=== PATIENT | female | born 1995 | race Caucasian/White ===

== ENCOUNTER 2016-10-02 11:02 | Inpatient (IN) | payer MEDICAID, OTHER ==
[~2016-10-02] VITALS: Ht 154.9 cm; Wt 71.9 kg
[2016-10-02 11:12] VITALS: Ht 154.9 cm; Wt 71.9 kg
[2016-10-02 11:13] VITALS: BP 121/78; PULSE 81
[2016-10-02] MEDS ORDERED: PRENAT PO (11:14)
--- NOTE | 2016-10-02 11:55 | RADRPT ---
PROCEDURE: US OB biophysical profile. CLINICAL INDICATION: decreased movements, spontaneous rupture of membranes TECHNIQUE: Multiple sonographic images of the pelvis were obtained. The images were reviewed on a PACS workstation. COMPARISON: No prior studies are available for comparison. FINDINGS: There is a single viable intrauterine gestation. Cardiac activity is present with 148 beats per min [place]. There is a vertex presentation. The placenta is anterior. There is no evidence of placental abruption. There is a borderline decreased amount of amniotic fluid with an MELINDA = 7.9 cm. Biophysical profile: movement 2/2 tone 2/2. breathing 2/2 MELINDA 2/2 Total 01/09 RPTAT: AA . IMPRESSION: Normal biophysical profile. Borderline decreased MELINDA. . .Adria Orantes MD, MD Date Time Electronically viewed and signed by .Adria Orantes MD, MD on 10/02/2016 11:55 .S/
--- NOTE | 2016-10-02 11:56 | RADRPT ---
PROCEDURE: US OB. CLINICAL INDICATION: Size and dates , spontaneous rupture of membranes TECHNIQUE: Multiple sonographic images of the pelvis and gravid uterus were obtained. The images were reviewed on a PACS workstation. COMPARISON: No prior studies are available for comparison. FINDINGS: There is a single viable intrauterine gestation. Cardiac activity is present with 148 beats per min [place]. There is a vertex presentation. The placenta is anterior. There is no evidence of placental abruption. There is a borderline decreased amount of amniotic fluid with an MELINDA = 7.9 cm. Measurements were made in order to determine age. The results are as follows: BPD =8.8 cm HC =31.6 cm AC =33.8 cm FL =6.9 cm Estimated gestational age of approximately 36 weeks and 0 days based on ultrasound measurements. Clinical age: 38 weeks and 5 days. The estimated date of delivery is 10/30/16, based on ultrasound measurements. The EFW = 3001 g, 18.9%, based on LMP age. RPTAT: AA IMPRESSION: Single viable intrauterine gestation of approximately 36 weeks and 0 days based on ultrasound measu rements. Smaller than clinical age by almost 3 weeks. .Adria Orantes MD, MD Date Time Electronically viewed and signed by .Adria Orantes MD, MD on 10/02/2016 11:56 .S/
[2016-10-02] MEDS ORDERED: OXYTOCIN 30 UNITS/LR 500 ML IV SCH (12:30)
[2016-10-02] MEDS ORDERED: LACTATED RINGER'S 1,000 ML IV PRN (12:30)
[2016-10-02] MEDS ORDERED: CARBOPROST 250 MCG INJ IM PRN (12:30)
[2016-10-02] MEDS ORDERED: AMPICILLIN 2 GM/NS (PMX) 100 ML IV ONE (12:30)
[2016-10-02] MEDS ORDERED: METHYLERGONOVINE 0.2 MG INJ IM PRN (12:30)
[2016-10-02] MEDS ORDERED: MISOPROSTOL 200 MCG TAB PR PRN (12:30)
[2016-10-02] MEDS ORDERED: LIDOCAINE 1% (MPF) 30 ML INJ INJ PRN (12:30)
[2016-10-02] MEDS ORDERED: BUTORPHANOL 2 MG INJ IV PRN ×2 (12:30)
[2016-10-02] MEDS: LACTATED RINGER'S 1,000 ML IV SCH ×2 (12:43→18:46)
[2016-10-02 13:01] LABS: ADD SCAN DIFF NO; BASOPHIL # 0.1 10^3/ul (0.0-0.1); BASOPHILS % 0.7 % (0.0-2.0); EOSINOPHILS # 0.2 10^3/ul (0.0-0.5); EOSINOPHILS % 1.6 % (0.0-7.0); HEMATOCRIT 36.3 % (37.0-47.0); HEMOGLOBIN 11.9 g/dl (12.0-16.0); LYMPHOCYTES # 1.8 10^3/ul (0.8-2.9); LYMPHOCYTES % 18.9 % (15.0-51.0); MEAN CORPUSCULAR HEMOGLOBIN 29.6 pg (29.0-33.0); MEAN CORPUSCULAR HGB CONC 32.8 g/dl (32.0-37.0); MEAN CORPUSCULAR VOLUME 90.3 fl (82.0-101.0); MEAN PLATELET VOLUME 10.1 fl (7.4-10.4); MONOCYTE # 0.7 10^3/ul (0.3-0.9); MONOCYTES % 7.7 % (0.0-11.0); NEUTROPHIL # 6.7 10^3/ul (1.6-7.5); NEUTROPHILS % 69.7 % (39.0-77.0); PLATELET COUNT 278 10^3/UL (140-415); RED BLOOD COUNT 4.02 10^6/ul (4.20-5.40); RED CELL DISTRIBUTION WIDTH 14.6 % (11.5-14.5); WHITE BLOOD COUNT 9.7 10^3/ul (4.8-10.8)
[2016-10-02 13:14] LABS: INR 0.93; PARTIAL THROMBOPLASTIN TIME 26.4 Sec (25.0-35.0); PROTIME 12.5 Sec (12.2-14.2)
[2016-10-02] MEDS ORDERED: ACETAMINOPHEN 325 MG TAB PO PRN (14:30)
--- NOTE | 2016-10-02 17:13 | HP ---
Date/Time of Note Date/Time of Note DATE: 10/02/16 TIME: 17:05 OB - History Hx of Present Free Text/Dictation 20 years old female 1 para 0 admitted to [facility] at 38 weeks and 5 days with premature rupture of membrane as of 1400 October 02, 2016, clear fluid no meconium ,admitting pelvic examination cervix 1-2 cm 70% effaced vertex at -3 station contraction every 3-6 minute, was placed on ampicillin 2 g IV every 6 hours and labor augmentation with Pitocin IV drip infusion Chief Complaint: Premature rupture of membrane labor contraction Estimated Due Date: October 20, 2016 : 1 Para: 0 Spontaneous : 0 Therapeutic : 0 Care: Good Care Ultrasounds: Normal mid trimester US Obstetrical Complications: None Medical Complications: None Past Family/Social History * Past Medical, Surgical, Family and Obstetric Histories reviewed from chart. Rubella: immune RPR/VDRL: Negative GBS Status: Negative HBsAG: Negative OB Admission Exam Vital Signs Vital Signs Vital Signs Date Time Temp Pulse Resp B/P Pulse Ox O2 Delivery O2 Flow Rate FiO2 10/02/16 11:13 97.7 81 121/78 Physical Exam HEENT: WNL Heart: Rhythm Normal Lungs: Clear, Equal Abdomen: WNL Extremities: Normal Reflexes: Normal Cervical Dilatation: 2cm Effacement: 75% Station: -2 Membranes: Ruptured Amniotic Fluid: Clear Heart Rate: 130's Accelerations: Accelerations Present Decelerations: No Decelerations Varibility: Moderate Contractions on Admission: < 5 Minutes Apart Intensity: Moderate Last 72 hours Lab Results CBC & BMP 10/02/16 12:45 CRISPIN MEAD MD October 02, 2016 17:13
[2016-10-02] MEDS: AMPICILLIN 1 GM/NS (PMX) 50 ML IV SCH ×2 (17:27→20:47)
[2016-10-02] MEDS ORDERED: LACTATED RINGER'S 1,000 ML IV ONE (18:32)
[2016-10-02] MEDS ORDERED: ONDANSETRON 4 MG INJ IV PRN (19:00)
[2016-10-02] MEDS ORDERED: DIPHENHYDRAMINE 50 MG INJ IV PRN (19:00)
[2016-10-02] MEDS ORDERED: CITRIC ACID/NA CITRATE 30 ML CUP PO ONE (19:00)
[2016-10-02] MEDS ORDERED: morphine 2 MG INJ IV PRN ×2 (19:00)
[2016-10-02] MEDS ORDERED: KETOROLAC 30 MG INJ IV PRN (19:00)
[2016-10-02] MEDS ORDERED: ONDANSETRON 4 MG INJ IV ONE (19:00)
[2016-10-02] MEDS ORDERED: NALOXONE (0.4 MG/ML) INJ IV PRN (19:00)
[2016-10-02] MEDS ORDERED: PROCHLORPERAZINE 10 MG INJ IV PRN (19:00)
[2016-10-02] MEDS: ACETAMINOPHEN 500 MG TAB PO PRN (23:15)
[2016-10-03] MEDS: LACTATED RINGER'S 1,000 ML IV SCH ×3 (00:07→12:47)
[2016-10-03] MEDS: AMPICILLIN 1 GM/NS (PMX) 50 ML IV SCH ×4 (00:19→12:05)
[2016-10-03] MEDS: FENTAnyl 2MCG/ML-ROPIV 0.2% 100 ML BAG EPI SCH ×2 (01:59→09:11)
[2016-10-03] MEDS: ACETAMINOPHEN 500 MG TAB PO PRN (04:57)
[2016-10-03] MEDS ORDERED: DEXTROSE 5%-LR 1,000 ML IV SCH (10:00)
[2016-10-03] MEDS: OXYTOCIN 30 UNITS/LR 500 ML IV PRN ×2 (15:56→16:03)
--- NOTE | 2016-10-03 16:10 | LDN ---
Date/Time of Note Date/Time of Note DATE: 10/03/16 TIME: 16:06 Delivery Summary Normal spontaneous vaginal delivery of a baby boy from OA position shoulders delivered without any difficulty rest of the baby's body followed cord was clamped after stopped pulsation placenta spontaneous expulsion inspected complete blood loss 250 cc patient sustained small first-degree perineal laceration repaired with 2-0 chromic catgut Placenta Delivered: Spontaneously Meconium: none Episiotomy: No Sponge & Needle done & correct: Yes All needle counts correct: Yes Any foreign bodies felt in the: No Problems: Infant Delivery Information Sex Sex: male Apgars 1 Minute: 8 5 Minute: 9 Suctioning Nose & mouth suctioned at amy: Yes Delee suction performed: Yes Umbilical Cord Umbilical cord with: 3 Vessels Cord presentations: no nuchal cord Cord Blood was obtained: Yes CRISPIN MEAD MD October 03, 2016 16:10
[2016-10-03 17:31] VITALS: BP 126/86; PULSE 100; RESP 16
[2016-10-03] MEDS: OXYTOCIN 30 UNITS/LR 500 ML IV SCH ×2 (17:36→21:39)
[2016-10-03] MEDS ORDERED: OXYCODONE/ASPIRIN (4.88/325) TAB PO PRN ×2 (18:00)
[2016-10-03] MEDS ORDERED: ONDANSETRON 4 MG INJ IV PRN (18:00)
[2016-10-03] MEDS ORDERED: ACETAMINOPHEN/CODEINE #3 TAB PO PRN ×2 (18:00)
[2016-10-03] MEDS ORDERED: DIBUCAINE 1% 30 GM OINT PR PRN (18:00)
[2016-10-03] MEDS ORDERED: ACETAMINOPHEN 325 MG TAB PO PRN (18:00)
[2016-10-03] MEDS ORDERED: LANOLIN 7 GM TUBE TOP PRN (18:00)
[2016-10-03] MEDS: BENZOCAINE 20% 56 ML SPRAY TOP PRN (18:25)
[2016-10-03] MEDS: WITCH HAZEL/GLYCERIN PAD PR PRN (18:26)
[2016-10-03] MEDS: IBUPROFEN 600 MG TAB PO SCH (18:27)
[2016-10-03 20:00] VITALS: BP 126/74; PULSE 86; RESP 16
[2016-10-03] MEDS: SENNA/DOCUSATE NA (8.6MG/50MG) TAB PO SCH (21:36)
[2016-10-04] VITALS: BP 120/66; PULSE 80; RESP 18
[2016-10-04] MEDS: IBUPROFEN 600 MG TAB PO SCH ×5 (00:37→23:44)
[2016-10-04 04:00] VITALS: BP 112/54; PULSE 87; RESP 20
[2016-10-04 07:40] VITALS: BP 101/57; PULSE 80; RESP 16
[2016-10-04] MEDS: SENNA/DOCUSATE NA (8.6MG/50MG) TAB PO SCH ×2 (08:21→21:11)
[2016-10-04 08:32] LABS: ADD SCAN DIFF NO
[2016-10-04 08:44] LABS: BASOPHIL # 0.1 10^3/ul (0.0-0.1); BASOPHILS % 0.5 % (0.0-2.0); EOSINOPHILS # 0.2 10^3/ul (0.0-0.5); EOSINOPHILS % 1.4 % (0.0-7.0); HEMOGLOBIN 8.4 g/dl (12.0-16.0); LYMPHOCYTES # 3.3 10^3/ul (0.8-2.9); LYMPHOCYTES % 22.2 % (15.0-51.0); MEAN CORPUSCULAR HEMOGLOBIN 29.5 pg (29.0-33.0); MEAN CORPUSCULAR HGB CONC 32.3 g/dl (32.0-37.0); MEAN CORPUSCULAR VOLUME 91.2 fl (82.0-101.0); MEAN PLATELET VOLUME 10.4 fl (7.4-10.4); MONOCYTE # 1.3 10^3/ul (0.3-0.9); MONOCYTES % 8.8 % (0.0-11.0); NEUTROPHIL # 9.8 10^3/ul (1.6-7.5); NEUTROPHILS % 66.4 % (39.0-77.0); PLATELET COUNT 216 10^3/UL (140-415); RED BLOOD COUNT 2.85 10^6/ul (4.20-5.40); RED CELL DISTRIBUTION WIDTH 15.1 % (11.5-14.5); WHITE BLOOD COUNT 14.7 10^3/ul (4.8-10.8)
--- NOTE | 2016-10-04 10:03 | PN ---
Date/Time of Note Date/Time of Note DATE: 10/04/16 TIME: 10:02 OB Subjective Subjective Subjective day 1 Day 1 post normal vaginal delivery afebrile abdomen soft uterus firm lochia normal extremities normal ambulation recommended Laboratory Tests Test 10/04/16 08:01 White Blood Count 14.710^3/ul Red Blood Count 2.8510^6/ul Hemoglobin 8.4g/dl Hematocrit 26.0% Mean Corpuscular Volume 91.2fl Mean Corpuscular Hemoglobin 29.5pg Mean Corpuscular Hemoglobin Concent 32.3g/dl Red Cell Distribution Width 15.1% Platelet Count 80544^3/UL Mean Platelet Volume 10.4fl Neutrophils % 66.4% Lymphocytes % 22.2% Monocytes % 8.8% Eosinophils % 1.4% Basophils % 0.5% Nucleated Red Blood Cells % 0.0/100WBC Neutrophils # 9.810^3/ul Lymphocytes # 3.310^3/ul Monocytes # 1.310^3/ul Eosinophils # 0.210^3/ul Basophils # 0.110^3/ul Nucleated Red Blood Cells # 0.010^3/ul Current Medications Medications (Trade) Dose Ordered Sig/Monique Route PRN Reason Start Time Stop Time Status Last Admin Dose Admin Lactated Ringer's 1,000 ml @ 125 mls/hr Q8H IV 10/02/16 12:28 10/03/16 17:38 DC 10/03/16 12:47 Ampicillin 100 ml @ 100 mls/hr ONCE ONCE IV 10/02/16 12:30 10/02/16 13:29 DC 10/02/16 13:07 Ampicillin 50 ml @ 100 mls/hr Q4H IV 10/02/16 16:30 10/03/16 17:38 DC 10/03/16 12:05 Oxytocin/Lactated Ringer's 500 ml @ 0 mls/hr TITRATE IV 10/02/16 12:30 10/03/16 17:38 DC 10/02/16 13:09 Butorphanol Tartrate (Stadol) 1 mg Q2H PRN IV PAIN 10/02/16 12:30 10/03/16 17:38 DC Butorphanol Tartrate (Stadol) 2 mg Q2H PRN IV PAIN 10/02/16 12:30 10/03/16 17:38 DC Lidocaine 30 ml 30 ml ONCE PRN INJ EPISIOTOMY/TEARING 10/02/16 12:30 10/03/16 17:38 DC Lactated Ringer's 1,000 ml @ 2,000 mls/hr Q30M PRN IV PRE-EPIDURAL BOLUS 10/02/16 12:30 10/03/16 17:38 DC 10/02/16 17:27 Oxytocin/Lactated Ringer's 500 ml @ 0 mls/hr ONCE PRN IV For Hemorrhage Management 10/02/16 12:30 10/03/16 17:38 DC 10/03/16 16:03 Methylergonovine Maleate (Methergine) 0.2 mg ONCE PRN IM VAGINAL BLEEDING 10/02/16 12:30 10/03/16 17:39 DC 10/03/16 15:04 Carboprost Tromethamine (Hemabate) 250 mcg ONCE PRN IM VAGINAL BLEEDING 10/02/16 12:30 10/03/16 17:39 DC Misoprostol (Cytotec) 1,000 mcg ONCE PRN SD VAGINAL BLEEDING 10/02/16 12:30 10/03/16 17:39 DC Acetaminophen 650 mg 650 mg Q6H PRN PO PAIN AND OR ELEVATED TEMP 10/02/16 14:30 10/03/16 17:39 DC 10/02/16 14:17 Lactated Ringer's (Lr) 1,000 ml @ 1,000 mls/hr Q1H ONCE IV 10/02/16 18:32 10/02/16 19:31 DC 10/02/16 22:48 Ondansetron HCl (Zofran Inj) 4 mg pre-procedure ONCE IV 10/02/16 19:00 10/02/16 19:01 DC Citric Acid/ Sodium Citrate (Bicitra) 30 ml pre-procedure ONCE PO 10/02/16 19:00 10/02/16 19:01 DC Naloxone HCl (Narcan) 0.1 mg Q2M PRN IV FOR RESP RATE 8 OR LESS 10/02/16 19:00 10/03/16 17:39 DC Ketorolac Tromethamine (Toradol) 30 mg Q6H PRN IV PAIN 10/02/16 19:00 10/03/16 17:39 DC Morphine Sulfate (morphine) 2 mg Q3H PRN IV PAIN LEVEL 1-5 10/02/16 19:00 10/03/16 17:39 DC Morphine Sulfate (morphine) 4 mg Q3H PRN IV PAIN LEVEL 6-10 10/02/16 19:00 10/03/16 17:39 DC Diphenhydramine HCl (Benadryl) 25 mg Q6H PRN IV ITCHING 10/02/16 19:00 10/03/16 17:39 DC Ondansetron HCl (Zofran Inj) 4 mg Q6H PRN IV NAUSEA AND/OR VOMITING 10/02/16 19:00 10/03/16 17:39 DC Prochlorperazine (Compazine Inj) 10 mg ONCE PRN IV NAUSEA AND/OR VOMITING 10/02/16 19:00 10/03/16 17:39 DC Fentanyl/ Ropivacaine 100 ml EPIDURAL INFUSION EPI 10/02/16 19:00 10/03/16 17:39 DC 10/03/16 09:11 Acetaminophen 1000 mg 1,000 mg Q4H PRN PO PAIN AND OR ELEVATED TEMP 10/02/16 23:30 10/03/16 17:39 DC 10/03/16 04:57 Dextrose/Lactated Ringer's 1,000 ml @ 125 mls/hr Q8H IV 10/03/16 10:00 10/03/16 17:39 DC 10/03/16 10:00 Oxytocin/Lactated Ringer's 500 ml @ 125 mls/hr Q4H IV 10/03/16 17:36 10/04/16 01:35 DC 10/03/16 21:39 Ibuprofen (Motrin) 600 mg Q6 PO 10/03/16 18:00 10/04/16 06:39 Acetaminophen (Tylenol Tab) 650 mg Q4H PRN PO PAIN LEVEL 1-5 10/03/16 18:00 Acetaminophen/ Codeine Phosphate (Tylenol No.3) 1 tab Q4H PRN PO PAIN LEVEL 1-5 10/03/16 18:00 Acetaminophen/ Codeine Phosphate (Tylenol No.3) 2 tab Q4H PRN PO PAIN LEVEL 6-10 10/03/16 18:00 Oxycodone/Aspirin (Percodan) 1 tab Q3H PRN PO PAIN LEVEL 1-5 10/03/16 18:00 Oxycodone/Aspirin (Percodan) 2 tab Q3H PRN PO PAIN LEVEL 6-10 10/03/16 18:00 Ondansetron HCl (Zofran Inj) 4 mg Q6H PRN IV NAUSEA AND/OR VOMITING 10/03/16 18:00 Senna/Docusate Sodium (Senokot-S) 1 tab BID PO 10/03/16 21:00 10/04/16 08:21 Witch Lorrie/ Glycerin (Tucks Pads) 1 pad BEDSIDE MEDICATION PRN SD HEMORRHOID/EPISIOTMY PAIN 10/03/16 18:00 10/03/16 18:26 Benzocaine (Dermoplast [place]) 1 spray BEDSIDE MEDICATION PRN TOP HEMORRHOID/EPISIOTMY PAIN 10/03/16 18:00 10/03/16 18:25 Dibucaine (Nupercainal) 1 applic BEDSIDE MEDICATION PRN SD HEMORRHOID/EPISIOTMY PAIN 10/03/16 18:00 10/03/16 18:26 Lanolin (Fuf-S-Auhjlb) 1 applic BEDSIDE MEDICATION PRN TOP BEDSIDE FOR FAROOQ TO NIPPLES 10/03/16 18:00 10/03/16 18:26 Measles/Mumps/ Rubella Vaccine Live (Mmr Ii Vaccine) 0.5 ml ONCE ONCE SC* 10/05/16 09:00 10/05/16 09:01 CRISPIN MEAD MD October 04, 2016 10:03
[2016-10-04 16:00] VITALS: BP 111/78; PULSE 88; RESP 16
[2016-10-04 20:00] VITALS: BP 111/74; PULSE 71; RESP 17
[2016-10-05 04:00] VITALS: BP 130/76; PULSE 77; RESP 20
[2016-10-05] MEDS: IBUPROFEN 600 MG TAB PO SCH ×2 (06:04→12:01)
[2016-10-05 08:00] VITALS: BP 118/81; PULSE 76; RESP 16
[2016-10-05] MEDS ORDERED: MEASLES,MUMPS,RUBELLA VACCINE INJ SC* ONE (09:00)
[2016-10-05] MEDS: SENNA/DOCUSATE NA (8.6MG/50MG) TAB PO SCH (10:01)
--- NOTE | 2016-10-05 13:29 | DS ---
Date/Time of Note Date/Time of Note DATE: 10/05/16 TIME: 13:23 Obstetrical Discharge Record Final Diagnosis Final Diagnosis: Term delivered Vaginal Delivery Obstetrical Delivery: Spontaneous, Laceration, Repaired Complications Gestational Age at Rupture Current Medications Medications (Trade) Dose Ordered Sig/Monique Route PRN Reason Start Time Stop Time Status Last Admin Dose Admin Lactated Ringer's 1,000 ml @ 125 mls/hr Q8H IV 10/02/16 12:28 10/03/16 17:38 DC 10/03/16 12:47 Ampicillin 100 ml @ 100 mls/hr ONCE ONCE IV 10/02/16 12:30 10/02/16 13:29 DC 10/02/16 13:07 Ampicillin 50 ml @ 100 mls/hr Q4H IV 10/02/16 16:30 10/03/16 17:38 DC 10/03/16 12:05 Oxytocin/Lactated Ringer's 500 ml @ 0 mls/hr TITRATE IV 10/02/16 12:30 10/03/16 17:38 DC 10/02/16 13:09 Butorphanol Tartrate (Stadol) 1 mg Q2H PRN IV PAIN 10/02/16 12:30 10/03/16 17:38 DC Butorphanol Tartrate (Stadol) 2 mg Q2H PRN IV PAIN 10/02/16 12:30 10/03/16 17:38 DC Lidocaine 30 ml 30 ml ONCE PRN INJ EPISIOTOMY/TEARING 10/02/16 12:30 10/03/16 17:38 DC Lactated Ringer's 1,000 ml @ 2,000 mls/hr Q30M PRN IV PRE-EPIDURAL BOLUS 10/02/16 12:30 10/03/16 17:38 DC 10/02/16 17:27 Oxytocin/Lactated Ringer's 500 ml @ 0 mls/hr ONCE PRN IV For Hemorrhage Management 10/02/16 12:30 10/03/16 17:38 DC 10/03/16 16:03 Methylergonovine Maleate (Methergine) 0.2 mg ONCE PRN IM VAGINAL BLEEDING 10/02/16 12:30 10/03/16 17:39 DC 10/03/16 15:04 Carboprost Tromethamine (Hemabate) 250 mcg ONCE PRN IM VAGINAL BLEEDING 10/02/16 12:30 10/03/16 17:39 DC Misoprostol (Cytotec) 1,000 mcg ONCE PRN RI VAGINAL BLEEDING 10/02/16 12:30 10/03/16 17:39 DC Acetaminophen 650 mg 650 mg Q6H PRN PO PAIN AND OR ELEVATED TEMP 10/02/16 14:30 10/03/16 17:39 DC 10/02/16 14:17 Lactated Ringer's (Lr) 1,000 ml @ 1,000 mls/hr Q1H ONCE IV 10/02/16 18:32 10/02/16 19:31 DC 10/02/16 22:48 Ondansetron HCl (Zofran Inj) 4 mg pre-procedure ONCE IV 10/02/16 19:00 10/02/16 19:01 DC Citric Acid/ Sodium Citrate (Bicitra) 30 ml pre-procedure ONCE PO 10/02/16 19:00 10/02/16 19:01 DC Naloxone HCl (Narcan) 0.1 mg Q2M PRN IV FOR RESP RATE 8 OR LESS 10/02/16 19:00 10/03/16 17:39 DC Ketorolac Tromethamine (Toradol) 30 mg Q6H PRN IV PAIN 10/02/16 19:00 10/03/16 17:39 DC Morphine Sulfate (morphine) 2 mg Q3H PRN IV PAIN LEVEL 1-5 10/02/16 19:00 10/03/16 17:39 DC Morphine Sulfate (morphine) 4 mg Q3H PRN IV PAIN LEVEL 6-10 10/02/16 19:00 10/03/16 17:39 DC Diphenhydramine HCl (Benadryl) 25 mg Q6H PRN IV ITCHING 10/02/16 19:00 10/03/16 17:39 DC Ondansetron HCl (Zofran Inj) 4 mg Q6H PRN IV NAUSEA AND/OR VOMITING 10/02/16 19:00 10/03/16 17:39 DC Prochlorperazine (Compazine Inj) 10 mg ONCE PRN IV NAUSEA AND/OR VOMITING 10/02/16 19:00 10/03/16 17:39 DC Fentanyl/ Ropivacaine 100 ml EPIDURAL INFUSION EPI 10/02/16 19:00 10/03/16 17:39 DC 10/03/16 09:11 Acetaminophen 1000 mg 1,000 mg Q4H PRN PO PAIN AND OR ELEVATED TEMP 10/02/16 23:30 10/03/16 17:39 DC 10/03/16 04:57 Dextrose/Lactated Ringer's 1,000 ml @ 125 mls/hr Q8H IV 10/03/16 10:00 10/03/16 17:39 DC 10/03/16 10:00 Oxytocin/Lactated Ringer's 500 ml @ 125 mls/hr Q4H IV 10/03/16 17:36 10/04/16 01:35 DC 10/03/16 21:39 Ibuprofen (Motrin) 600 mg Q6 PO 10/03/16 18:00 10/05/16 12:01 Acetaminophen (Tylenol Tab) 650 mg Q4H PRN PO PAIN LEVEL 1-5 10/03/16 18:00 Acetaminophen/ Codeine Phosphate (Tylenol No.3) 1 tab Q4H PRN PO PAIN LEVEL 1-5 10/03/16 18:00 10/04/16 21:11 Acetaminophen/ Codeine Phosphate (Tylenol No.3) 2 tab Q4H PRN PO PAIN LEVEL 6-10 10/03/16 18:00 Oxycodone/Aspirin (Percodan) 1 tab Q3H PRN PO PAIN LEVEL 1-5 10/03/16 18:00 Oxycodone/Aspirin (Percodan) 2 tab Q3H PRN PO PAIN LEVEL 6-10 10/03/16 18:00 Ondansetron HCl (Zofran Inj) 4 mg Q6H PRN IV NAUSEA AND/OR VOMITING 10/03/16 18:00 Senna/Docusate Sodium (Senokot-S) 1 tab BID PO 10/03/16 21:00 10/05/16 10:01 Witch Lorrie/ Glycerin (Tucks Pads) 1 pad BEDSIDE MEDICATION PRN RI HEMORRHOID/EPISIOTMY PAIN 10/03/16 18:00 10/03/16 18:26 Benzocaine (Dermoplast [place]) 1 spray BEDSIDE MEDICATION PRN TOP HEMORRHOID/EPISIOTMY PAIN 10/03/16 18:00 10/03/16 18:25 Dibucaine (Nupercainal) 1 applic BEDSIDE MEDICATION PRN RI HEMORRHOID/EPISIOTMY PAIN 10/03/16 18:00 10/03/16 18:26 Lanolin (Glc-L-Vokxea) 1 applic BEDSIDE MEDICATION PRN TOP BEDSIDE FOR FAROOQ TO NIPPLES 10/03/16 18:00 10/03/16 18:26 Measles/Mumps/ Rubella Vaccine Live (Mmr Ii Vaccine) 0.5 ml ONCE ONCE SC* 10/05/16 09:00 10/05/16 09:01 DC 2 Patient is doing well, Ambulatory She is afebrile Abdomen is soft , Fundus is firm Moderate amount of lochia Breasts are soft, Nipples are intact No calf tenderness. Perineum is healing well. Breast feeding the new born. Patient discharged home with instruction to rest at home and return to clinic in 4 weeks The to be seen in marrow 3 days by the welding technician Condition on Discharge Physical Assessment Voiding: Yes Bowel Movement: Yes Breast: Soft, non-tender Fundus: Firm Calf Tenderness: Yes Patient Condition: Good ANA HICKMAN MD October 05, 2016 13:28
[2016-10-05] MEDS: BENZOCAINE 20% 56 ML SPRAY TOP PRN (15:44)
[2016-10-05] MEDS: WITCH HAZEL/GLYCERIN PAD PR PRN (15:44)
[2016-10-06 12:53] LABS: RUBELLA ANTIBODY - IGG 3.07 index
== END 2016-10-05 15:45 | disposition home or self-care (01) | DRG 775 ==
LOC: OBT 11:02 → L-D 11:04 → OBT 12:20 → L-D 12:22 → PP1 10-03 17:35
PROVIDERS: ADMIT Obstetrics & Gynecology; ATTEND Obstetrics & Gynecology
PROC: 10E0XZZ Delivery of Products of Conception, External Approach (ICD-10-PCS; principal; 2016-10-03)
PROC: 0HQ9XZZ Repair Perineum Skin, External Approach (ICD-10-PCS; 2016-10-03)
DX: O70.0 First degree perineal laceration during delivery (principal); Z37.0 Single live birth; Z3A.38 38 weeks gestation of pregnancy
CPT/HCPCS: 62319; 76815; 76818; 84112; 85025; 85610; 85730; 86592; 86703; 86762; 86900; 86901; 87340; G0463; J0290; J2210; J2590; J3010; J7120; J7121

== ENCOUNTER 2017-04-20 15:38 | Emergency (ER) | payer OTHER ==
[~2017-04-20] VITALS: Ht 157.5 cm; Wt 59.4 kg
[~2017-04-20 15:38] MED LIST: PRENAT PO
[2017-04-20 15:43] VITALS: Ht 157.5 cm; Wt 59.4 kg
[2017-04-20] MEDS ORDERED: ONDANSETRON (ODT) 4 MG TAB ODT STA (16:00)
[2017-04-20] MEDS ORDERED: LIDOCAINE/MYLANTA 40 ML BTL PO ONE (16:00)
--- NOTE | 2017-04-20 16:22 | ERD ---
ER Documentation Chief Complaint Chief Complaint Abdominal pain HPI 18-year-old female otherwise healthy complains of epigastric abdominal pain for 1 day with nausea, and diarrhea. Patient's pain is described as achy, localized , no radiation to the right upper quadrant right lower quadrant. She denies fevers or chills. She states that her daughter was 6 months at home has had similar symptoms as well. No history recent travel. ROS All systems reviewed and are negative except as per history of present illness. Medications Home Meds Active Scripts Ondansetron (Ondansetron Odt) 4 Mg Tab.rapdis, 4 MG PO Q6H Y for NAUSEA AND/OR VOMITING, #10 TAB Prov:AASHISH MOON PA-C 04/20/17 Ranitidine Hcl* (Zantac*) 150 Mg Tablet, 150 MG PO BID Y for EPIGASTRIC PAIN, # 30 TAB Prov:AASHISH MOON PA-C 04/20/17 Hydrocodone/Acetaminophen ([place] 5-325 Tablet) 1 Each Tablet, 1 TAB PO Q6H Y for PAIN, #7 TAB Prov:AASHISH MOON PA-C 04/20/17 Reported Medications Multivit/Min/Fol Ac/Iron/Pren* ( S*) 1 Tab Tab, 1 TAB PO DAILY, TAB 10/02/16 Allergies Allergies: Coded Allergies: No Known Allergy (Unverified , 10/02/16) PMhx/Soc History of Surgery: No Anesthesia Reaction: No Hx Neurological Disorder: No Hx Respiratory Disorders: No Hx Cardiac Disorders: No Hx Psychiatric Problems: No Hx Miscellaneous Medical Probl: No Hx Alcohol Use: No Hx Substance Use: No Hx Tobacco Use: No Physical Exam Vitals Vital Signs Date Time Temp Pulse Resp B/P Pulse Ox O2 Delivery O2 Flow Rate FiO2 04/20/17 15:43 98.1 120 20 114/71 97 Physical Exam General: Well-developed, well-nourished. The patient appears in no acute distress. HEENT: Head is normocephalic, atraumatic. No scleral icterus. Pupils are equal , round, and reactive. Oral mucous membranes are moist. No pharyngeal erythema. Neck: Supple. Nontender. Lungs: Clear to auscultation. Normal air movement. Heart: Regular rate and rhythm. S1 and S2 are normal. No murmurs, gallops, or rubs. Abdomen: Soft, mid abdomen is tender, nondistended. Bowel sounds are normoactive. Negative Scruggs sign, no McBurney tenderness. Extremities: No clubbing or cyanosis. Normal pulses. Moving extremities x 4. No weakness. Neurologic: Alert and oriented 3. No focal deficits. Skin: Normal turgor. No rash or lesions. Result Diagram: 04/20/17 1611 04/20/17 1611 Results 24 hrs Laboratory Tests Test 04/20/17 16:11 White Blood Count 10.910^3/ul Red Blood Count 4.9410^6/ul Hemoglobin 14.4g/dl Hematocrit 43.3% Mean Corpuscular Volume 87.7fl Mean Corpuscular Hemoglobin 29.1pg Mean Corpuscular Hemoglobin Concent 33.3g/dl Red Cell Distribution Width 12.1% Platelet Count 30705^3/UL Mean Platelet Volume 9.3fl Neutrophils % 79.3% Lymphocytes % 12.5% Monocytes % 5.6% Eosinophils % 1.7% Basophils % 0.4% Nucleated Red Blood Cells % 0.0/100WBC Neutrophils # 8.610^3/ul Lymphocytes # 1.410^3/ul Monocytes # 0.610^3/ul Eosinophils # 0.210^3/ul Basophils # 0.010^3/ul Nucleated Red Blood Cells # 0.010^3/ul Urine Color YELLOW Urine Clarity SLIGHTLY CLOUDY Urine pH 5.0 Urine Specific Wright 1.030 Urine Ketones TRACEmg/dL Urine Nitrite NEGATIVEmg/dL Urine Bilirubin NEGATIVEmg/dL Urine Urobilinogen NEGATIVEmg/dL Urine Leukocyte Esterase 1+Tracy/ul Urine Microscopic RBC 6/HPF Urine Microscopic WBC 8/HPF Urine Squamous Epithelial Cells MANY/HPF Urine Bacteria FEW/HPF Urine Mucus FEW/HPF Urine Hemoglobin NEGATIVEmg/dL Urine Glucose NEGATIVEmg/dL Urine Total Protein NEGATIVEmg/dl Sodium Level 147mmol/L Potassium Level 4.4mmol/L Chloride Level 106mmol/L Carbon Dioxide Level 23mmol/L Anion Gap 22 Blood Urea Nitrogen 15mg/dl Creatinine 0.64mg/dl Glucose Level 95mg/dl Calcium Level 9.5mg/dl Total Bilirubin 0.6mg/dl Direct Bilirubin 0.00mg/dl Indirect Bilirubin 0.6mg/dl Aspartate Amino Transf (AST/SGOT) 41IU/L Alanine Aminotransferase (ALT/SGPT) 78IU/L Alkaline Phosphatase 176IU/L Total Protein 8.6g/dl Albumin 5.0g/dl Globulin 3.60g/dl Albumin/Globulin Ratio 1.38 Lipase 77U/L Serum HCG, Qualitative NEGATIVE Current Medications Medications (Trade) Dose Ordered Sig/Monique Route PRN Reason Start Time Stop Time Status Last Admin Dose Admin Miscellaneous Medication (Gi Cocktail (2)) 40 ml ONCE ONCE PO 04/20/17 16:00 04/20/17 16:01 DC 04/20/17 16:09 Ondansetron HCl (Zofran Odt) 4 mg ONCE STAT ODT 04/20/17 16:00 04/20/17 16:01 DC 04/20/17 16:09 DIAGNOSTIC IMAGING REPORT Patient: EZEKIEL IBRAHIM : 1995 Age: 21 Sex: F MR #: [id number] DOS: 04/20/17 1700 Ordering MD: AASHISH MOON PA-C Location: [facility] Room/Bed: PROCEDURE: US Abdomen (right upper quadrant). CLINICAL INDICATION: Right upper quadrant abdomen pain. TECHNIQUE: Multiple real-time longitudinal and transverse images of the right upper quadrant of the abdomen were acquired utilizing a curved array transducer. Images were reviewed on a high-resolution PACS workstation. COMPARISON: None FINDINGS: The liver is normal in size and normal in echogenicity. There is no focal hepatic lesion. Color Doppler and pulsed Doppler sonography demonstrate normal antegrade flow in the portal vein. The gallbladder is normal with no stones or wall thickening. There is no pericholecystic fluid collection. The bile ducts are normal with the common bile duct measuring 3.0 mm in diameter. The visualized portions of the pancreas are unremarkable with obscuration of the tail of the pancreas. No free fluid is present. The right kidney measures 10.4 cm. There is normal echogenicity of the right kidney. There is no perinephric fluid collection. No hydronephrosis, mass, or calculus is seen. IMPRESSION: 1. Unremarkable right upper quadrant abdomen ultrasound. RPTAT: QQ .Juanito Desouza MD, MD Date Time Electronically viewed and signed by .Juanito Desouza MD, on 04/20/2017 17:33 .R/ CC: AASHISH MOON PA-C Procedures/MDM 20-year-old female comes with epigastric abdominal pain going to her mid abdomen , associated nausea and diarrhea. Suspect patient symptoms are most likely due to a viral process. Differential diagnosis includes gastritis, GERD, gastroenteritis, UTI, acute pancreatitis, acute hepatobiliary process, appendicitis. At this time the patient has localized pain to the epigastric region, there is no evidence of Scruggs sign, or right lower quadrant pain. Urine shows positive leukocyte esterase, with 8 white blood cells and will be treated for UTI. There is no evidence of leukocytosis. Patient had an elevated ALT, and alk phos, had a follow-up gallbladder ultrasound, there is no evidence of any gallstones. Recheck pain in 8-12 hours for any worsening symptoms. She was given GI cocktail, as well as Zofran states that her pain is improved. She does not have any rebound pain or guarding or signs of an acute or surgical abdominal process. Departure Diagnosis: Primary Impression: Epigastric pain Additional Impression: UTI (urinary tract infection) Condition: Good AASHISH MOON PA-C Apr 20, 2017 16:22
[2017-04-20 16:29] LABS: BASOPHILS % 0.4 % (0.0-2.0); EOSINOPHILS # 0.2 10^3/ul (0.0-0.5); EOSINOPHILS % 1.7 % (0.0-7.0); HEMATOCRIT 43.3 % (37.0-47.0); HEMOGLOBIN 14.4 g/dl (12.0-16.0); LYMPHOCYTES # 1.4 10^3/ul (0.8-2.9); LYMPHOCYTES % 12.5 % (15.0-51.0); MEAN CORPUSCULAR HEMOGLOBIN 29.1 pg (29.0-33.0); MEAN CORPUSCULAR HGB CONC 33.3 g/dl (32.0-37.0); MEAN CORPUSCULAR VOLUME 87.7 fl (82.0-101.0); MEAN PLATELET VOLUME 9.3 fl (7.4-10.4); MONOCYTE # 0.6 10^3/ul (0.3-0.9); MONOCYTES % 5.6 % (0.0-11.0); NEUTROPHIL # 8.6 10^3/ul (1.6-7.5); NEUTROPHILS % 79.3 % (39.0-77.0); PLATELET COUNT 353 10^3/UL (140-415); RED BLOOD COUNT 4.94 10^6/ul (4.20-5.40); RED CELL DISTRIBUTION WIDTH 12.1 % (11.5-14.5); WHITE BLOOD COUNT 10.9 10^3/ul (4.8-10.8)
[2017-04-20 16:35] LABS: ADD UMIC YES; UR ASCORBIC ACID 40 mg/dL (NEGATIVE); UR BACTERIA FEW /HPF (NONE SEEN); UR BILIRUBIN (Dip) NEGATIVE (NEGATIVE); UR BLOOD (Dip) NEGATIVE (NEGATIVE); UR CLARITY SLIGHTLY CLOUDY (CLEAR); UR COLOR YELLOW (YELLOW); UR GLUCOSE (Dip) NEGATIVE (NEGATIVE); UR KETONES (Dip) TRACE mg/dL (NEGATIVE); UR LEUKOCYTE ESTERASE (Dip) 1+ Leu/ul (NEGATIVE); UR MUCUS FEW /HPF (NONE SEEN); UR NITRITE (Dip) NEGATIVE (NEGATIVE); UR RBC 6 /HPF (0-5); UR SQUAMOUS EPITHELIAL CELL MANY /HPF (FEW); UR TOTAL PROTEIN (Dip) NEGATIVE (NEGATIVE); UR UROBILINOGEN (Dip) NEGATIVE (NEGATIVE)
[2017-04-20 16:51] LABS: ALBUMIN/GLOBULIN RATIO 1.38; BILIRUBIN,INDIRECT 0.6 mg/dl (0-1.1); BILIRUBIN,TOTAL 0.6 mg/dl (0.2-1.3); CALCIUM 9.5 mg/dl (8.4-10.2); CREATININE 0.64 mg/dl (0.44-1.00); POTASSIUM 4.4 mmol/L (3.5-5.1); TOTAL PROTEIN 8.6 g/dl (6.1-8.1)
--- NOTE | 2017-04-20 17:33 | RADRPT ---
PROCEDURE: US Abdomen (right upper quadrant). CLINICAL INDICATION: Right upper quadrant abdomen pain. TECHNIQUE: Multiple real-time longitudinal and transverse images of the right upper quadrant of th e abdomen were acquired utilizing a curved array transducer. Images were reviewed on a high-resoluti on PACS workstation. COMPARISON: None FINDINGS: The liver is normal in size and normal in echogenicity. There is no focal hepatic lesion. Color Doppler and pulsed Doppler sonography demonstrate normal a ntegrade flow in the portal vein. The gallbladder is normal with no stones or wall thickening. There is no pericholecystic fluid milagro ection. The bile ducts are normal with the common bile duct measuring 3.0 mm in diameter. The visualized portions of the pancreas are unremarkable with obscuration of the tail of the pancrea s. No free fluid is present. The right kidney measures 10.4 cm. There is normal echogenicity of the right kidney. There is no perinephric fluid collection. No hydronephrosis, mass, or calculus is seen. IMPRESSION: 1. Unremarkable right upper quadrant abdomen ultrasound. RPTAT: QQ .Juanito Desouza MD, MD Date Time Electronically viewed and signed by .Juanito Desouza MD, on 04/20/2017 17:33 .R/
[2017-04-20] MEDS ORDERED: ONDA4TAB14 PO (17:38)
[2017-04-20] MEDS ORDERED: HYDR-906 PO (17:38)
[2017-04-20] MEDS ORDERED: RANI150T9 PO (17:38)
[2017-04-20] MEDS ORDERED: CEPH-443 PO (17:44)
== END 2017-04-20 18:02 | disposition home or self-care (01) ==
LOC: FTE 15:38
DX: N39.0 Urinary tract infection, site not specified (principal)
CPT/HCPCS: 36415; 76705; 80053; 81001; 83690; 84703; 85025; Z7502; Z7610

== ENCOUNTER 2017-05-22 12:58 | Emergency (ER) | payer OTHER ==
[~2017-05-22] VITALS: Ht 152.4 cm; Wt 60.0 kg
[~2017-05-22 12:58] MED LIST changes: +CEPH-443 PO; +HYDR-906 PO; +ONDA4TAB14 PO; +RANI150T9 PO
[2017-05-22 13:04] VITALS: Ht 152.4 cm; Wt 60.0 kg
[2017-05-22] MEDS ORDERED: LIDOCAINE/MYLANTA 40 ML BTL PO STA (13:54)
--- NOTE | 2017-05-22 14:11 | ERD ---
ER Documentation Chief Complaint Chief Complaint epigastric pain since yesterday h/o gastritis HPI 21-year-old female, states she has a history of gastritis comes in with epigastric abdominal pain starting yesterday. The patient describes localized pain that is mild to moderate, described as "samantha" ie burning sensation. Patient was seen by me last month, had a gallbladder ultrasound shows no gallstones, mild elevation of ALT, otherwise unremarkable labs. She also states she has had vaginal bleeding for 1 month, mild to moderate bleeding ranging from 1-4 pads each day. States that she has had patient denies chest pain, shortness breath, dizziness. The patient has a Nexplanon placed 6 months ago.. ROS All systems reviewed and are negative except as per history of present illness. Medications Home Meds Active Scripts Omeprazole* (Omeprazole*) 20 Mg Capsule.dr, 20 MG PO DAILY, #30 Prov:AASHISH MOON PA-C 05/22/17 Ranitidine Hcl* (Zantac*) 150 Mg Tablet, 150 MG PO BID Y for EPIGASTRIC PAIN, # 30 TAB Prov:AASHISH MOON PA-C 05/22/17 Cephalexin* (Keflex*) 500 Mg Capsule, 500 MG PO TID for 5 Days, CAP Prov:AASHISH MOON PA-C 04/20/17 Ondansetron (Ondansetron Odt) 4 Mg Tab.rapdis, 4 MG PO Q6H Y for NAUSEA AND/OR VOMITING, #10 TAB Prov:AASHISH MOON PA-C 04/20/17 Ranitidine Hcl* (Zantac*) 150 Mg Tablet, 150 MG PO BID Y for EPIGASTRIC PAIN, # 30 TAB Prov:AASHISH MOON PA-C 04/20/17 Hydrocodone/Acetaminophen ([place] 5-325 Tablet) 1 Each Tablet, 1 TAB PO Q6H Y for PAIN, #7 TAB Prov:AASHISH MOON PA-C 04/20/17 Reported Medications Multivit/Min/Fol Ac/Iron/Pren* ( S*) 1 Tab Tab, 1 TAB PO DAILY, TAB 10/02/16 Allergies Allergies: Coded Allergies: No Known Allergy (Unverified , 10/02/16) PMhx/Soc Medical and Surgical Hx: pt denies Medical Hx, pt denies Surgical Hx History of Surgery: No Anesthesia Reaction: No Hx Neurological Disorder: No Hx Respiratory Disorders: No Hx Cardiac Disorders: No Hx Psychiatric Problems: No Hx Miscellaneous Medical Probl: No Hx Alcohol Use: No Hx Substance Use: No Hx Tobacco Use: No Smoking Status: Never smoker Physical Exam Vitals Vital Signs Date Time Temp Pulse Resp B/P Pulse Ox O2 Delivery O2 Flow Rate FiO2 05/22/17 13:04 98.1 88 18 132/83 99 Physical Exam General: Well-developed, well-nourished. The patient appears in no acute distress. HEENT: Head is normocephalic, atraumatic. No scleral icterus. Neck: Supple. Nontender. Lungs: Clear to auscultation. Normal air movement. Heart: Regular rate and rhythm. S1 and S2 are normal. No murmurs, gallops, or rubs. Abdomen: Soft, patient is tender to palpation in the epigastric region, nondistended. Bowel sounds are normoactive. Extremities: No clubbing or cyanosis. Normal pulses. Moving extremities x 4. No weakness. Neurologic: Alert and oriented 3. No focal deficits. Skin: Normal turgor. No rash or lesions. Result Diagram: 05/22/17 1355 05/22/17 1355 Results 24 hrs Laboratory Tests Test 05/22/17 13:55 05/22/17 14:20 White Blood Count 7.510^3/ul Red Blood Count 4.9910^6/ul Hemoglobin 14.5g/dl Hematocrit 43.6% Mean Corpuscular Volume 87.4fl Mean Corpuscular Hemoglobin 29.1pg Mean Corpuscular Hemoglobin Concent 33.3g/dl Red Cell Distribution Width 12.0% Platelet Count 56276^3/UL Mean Platelet Volume 9.5fl Neutrophils % 55.0% Lymphocytes % 33.1% Monocytes % 7.8% Eosinophils % 3.1% Basophils % 0.9% Nucleated Red Blood Cells % 0.0/100WBC Neutrophils # 4.110^3/ul Lymphocytes # 2.510^3/ul Monocytes # 0.610^3/ul Eosinophils # 0.210^3/ul Basophils # 0.110^3/ul Nucleated Red Blood Cells # 0.010^3/ul Sodium Level 144mmol/L Potassium Level 4.5mmol/L Chloride Level 102mmol/L Carbon Dioxide Level 29mmol/L Anion Gap 18 Blood Urea Nitrogen 11mg/dl Creatinine 0.65mg/dl Glucose Level 90mg/dl Calcium Level 10.6mg/dl Total Bilirubin 0.4mg/dl Direct Bilirubin 0.00mg/dl Indirect Bilirubin 0.4mg/dl Aspartate Amino Transf (AST/SGOT) 30IU/L Alanine Aminotransferase (ALT/SGPT) 50IU/L Alkaline Phosphatase 136IU/L Total Protein 8.8g/dl Albumin 4.9g/dl Globulin 3.90g/dl Albumin/Globulin Ratio 1.25 Lipase 117U/L Serum HCG, Qualitative NEGATIVE Urine Color YELLOW Urine Clarity CLEAR Urine pH 6.0 Urine Specific [place] 1.026 Urine Ketones NEGATIVEmg/dL Urine Nitrite NEGATIVEmg/dL Urine Bilirubin NEGATIVEmg/dL Urine Urobilinogen NEGATIVEmg/dL Urine Leukocyte Esterase NEGATIVELeu/ul Urine Microscopic RBC 2/HPF Urine Microscopic WBC 2/HPF Urine Squamous Epithelial Cells FEW/HPF Urine Mucus FEW/HPF Urine Hemoglobin 1+mg/dL Urine Glucose NEGATIVEmg/dL Urine Total Protein NEGATIVEmg/dl Current Medications Medications (Trade) Dose Ordered Sig/Monique Route PRN Reason Start Time Stop Time Status Last Admin Dose Admin Miscellaneous Medication (Gi Cocktail (2)) 40 ml ONCE STAT PO 05/22/17 13:54 05/22/17 13:55 DC 05/22/17 14:07 DIAGNOSTIC IMAGING REPORT Patient: EZEKIEL IBRAHIM : 1995 Age: 21 Sex: F MR #: [id number] DOS: 05/22/17 0000 Ordering MD: AASHISH MOON PA-C Location: [facility] Room/Bed: PROCEDURE: US Pelvis. CLINICAL INDICATION: Vaginal bleeding TECHNIQUE: Multiple sonographic images of the pelvis were obtained utilizing a transabdominally and transvaginally technique. The images were reviewed on a PACS workstation. COMPARISON: US PELVIS 10/02/2016 FINDINGS: The uterus is visualized and measures 5.3 x 2.5 x 3.4 cm. The endometrial echo complex is within normal limits, and measures 4 mm. There is no evidence for free fluid. The right ovary has a normal echotexture and measures 2.8 x 2.2 x 2.2 cm . The left ovary has a normal echotexture and measures 2.8 x 2.2 x 1.9 cm. There is a left para ovarian cyst, measuring 1.2 cm. No adnexal masses are noted. IMPRESSION: 1. Uterus and endometrial stripe are within normal limits. 2. Left para ovarian cyst measuring 1.2 cm. Otherwise no gross adnexal masses. No significant free fluid. RPTAT: AAPP Ondina Diaz Physician Date Time Electronically viewed and signed by Ondina Diaz Physician on 05/22/2017 14:44 JL/ CC: AASHISH MOON PA-C Procedures/[facility] [place] ED COURSE: Patient was given a GI consult. The patient's abdominal pain was reexamined. Patient was sitting comfortably with improved pain. Patient was not in any distress. 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 Patient's previous visit was with me, her lab work showed mildly elevated AST that has normalized, gallbladder ultrasound was unremarkable. The patient was given a GI cocktail with significant improvement of symptoms. Her history is most consistent with gastritis versus GERD. Patient's blood work also does not show any evidence of leukocytosis, or anemia. She does not have any history of hematemesis, hematochezia or melena, no signs of GI bleed and her vitals are normal. Patient also states that she has had vaginal bleeding for 1 month, the next month, her pelvic ultrasound study shows a left paraovarian cyst, no adnexal masses and urine is negative. She does not have any signs of torsion, infection, cervicitis, adnexal masses, ectopic , among others are primary differential diagnosis. She will be given ranitidine, as well as omeprazole, given dietary counseling as well stable for discharge. Departure Diagnosis: Primary Impression: Epigastric pain Additional Impressions: Abnormal vaginal bleeding Ovarian cyst Condition: AASHISH Bennett PA-C May 22, 2017 14:11
[2017-05-22 14:28] LABS: BASOPHIL # 0.1 10^3/ul (0.0-0.1); BASOPHILS % 0.9 % (0.0-2.0); EOSINOPHILS # 0.2 10^3/ul (0.0-0.5); EOSINOPHILS % 3.1 % (0.0-7.0); HEMATOCRIT 43.6 % (37.0-47.0); HEMOGLOBIN 14.5 g/dl (12.0-16.0); LYMPHOCYTES # 2.5 10^3/ul (0.8-2.9); LYMPHOCYTES % 33.1 % (15.0-51.0); MEAN CORPUSCULAR HEMOGLOBIN 29.1 pg (29.0-33.0); MEAN CORPUSCULAR HGB CONC 33.3 g/dl (32.0-37.0); MEAN CORPUSCULAR VOLUME 87.4 fl (82.0-101.0); MEAN PLATELET VOLUME 9.5 fl (7.4-10.4); MONOCYTE # 0.6 10^3/ul (0.3-0.9); MONOCYTES % 7.8 % (0.0-11.0); NEUTROPHIL # 4.1 10^3/ul (1.6-7.5); PLATELET COUNT 342 10^3/UL (140-415); RED BLOOD COUNT 4.99 10^6/ul (4.20-5.40); WHITE BLOOD COUNT 7.5 10^3/ul (4.8-10.8)
[2017-05-22 14:36] LABS: ADD UMIC YES; UR ASCORBIC ACID NEGATIVE (NEGATIVE); UR BILIRUBIN (Dip) NEGATIVE (NEGATIVE); UR BLOOD (Dip) 1+ mg/dL (NEGATIVE); UR CLARITY CLEAR (CLEAR); UR COLOR YELLOW (YELLOW); UR GLUCOSE (Dip) NEGATIVE (NEGATIVE); UR KETONES (Dip) NEGATIVE (NEGATIVE); UR LEUKOCYTE ESTERASE (Dip) NEGATIVE Leu/ul (NEGATIVE); UR MUCUS FEW /HPF (NONE SEEN); UR NITRITE (Dip) NEGATIVE (NEGATIVE); UR RBC 2 /HPF (0-5); UR SPECIFIC GRAVITY (Dip) 1.026 (1.003-1.030); UR SQUAMOUS EPITHELIAL CELL FEW /HPF (FEW); UR TOTAL PROTEIN (Dip) NEGATIVE (NEGATIVE); UR UROBILINOGEN (Dip) NEGATIVE (NEGATIVE)
--- NOTE | 2017-05-22 14:44 | RADRPT ---
PROCEDURE: US Pelvis. CLINICAL INDICATION: Vaginal bleeding TECHNIQUE: Multiple sonographic images of the pelvis were obtained utilizing a transabdominally an d transvaginally technique. The images were reviewed on a PACS workstation. COMPARISON: US PELVIS 10/02/2016 FINDINGS: The uterus is visualized and measures 5.3 x 2.5 x 3.4 cm. The endometrial echo complex is within nor mal limits, and measures 4 mm. There is no evidence for free fluid. The right ovary has a normal echotexture and measures 2.8 x 2.2 x 2.2 cm . The left ovary has a normal echotexture and measures 2.8 x 2.2 x 1.9 cm. There is a lef t para ovarian cyst, measuring 1.2 cm. No adnexal masses are noted. IMPRESSION: 1. Uterus and endometrial stripe are within normal limits. 2. Left para ovarian cyst measuring 1.2 cm. Otherwise no gross adnexal masses. No significant free f luid. RPTAT: AAPP Physician Laverne Date Time Electronically viewed and signed by Physician Laverne on 05/22/2017 14:44 JL/
[2017-05-22 14:45] LABS: ALBUMIN 4.9 g/dl (3.3-4.9); ALBUMIN/GLOBULIN RATIO 1.25; BILIRUBIN,INDIRECT 0.4 mg/dl (0-1.1); BILIRUBIN,TOTAL 0.4 mg/dl (0.2-1.3); CALCIUM 10.6 mg/dl (8.4-10.2); CREATININE 0.65 mg/dl (0.44-1.00); POTASSIUM 4.5 mmol/L (3.5-5.1); TOTAL PROTEIN 8.8 g/dl (6.1-8.1)
[2017-05-22] MEDS ORDERED: RANI150T9 PO (14:49)
[2017-05-22] MEDS ORDERED: OMEP20CA16 PO (14:49)
== END 2017-05-22 16:17 | disposition home or self-care (01) ==
LOC: FTE 12:58
DX: R10.13 Epigastric pain (principal); N93.9 Abnormal uterine and vaginal bleeding, unspecified; N83.202 Unspecified ovarian cyst, left side; R10.2 Pelvic and perineal pain
CPT/HCPCS: 36415; 76830; 76856; 80053; 81001; 83690; 84703; 85025; Z7502; Z7610

== ENCOUNTER 2017-11-21 13:21 | Emergency (ER) | END 2017-11-21 15:27 | disposition home or self-care (01) ==